=== PATIENT | male | born 1975 | race Caucasian/White ===

== ENCOUNTER 2016-09-28 17:05 | Emergency (ER) | payer OTHER ==
[2016-09-28 17:07] VITALS: BP 153/95; PULSE 78; TEMP 36.7; O2SAT 98; Ht 185.4 cm
[2016-09-28] MEDS ORDERED: PROPARACAINE HCL 0.5% OP SOLN 15 ML BTL OP STA (17:19)
[2016-09-28] MEDS ORDERED: CIPR0.3S OP (17:39)
--- NOTE | 2016-09-28 17:50 | EMERGENCY ROOM VISIT NOTE ---
History First contact with patient: 17:12 Chief Complaint: EYE ASSESSMENT Stated Complaint: RT EYE ASSESSMENT, WATERING, SWOLLEN History of Present Illness The patient is a 41 year old male who presents to the Emergency Room with complaints of a right draining eye. The patient reports that he awoke this morning with swelling and itchiness in his eye. He also had drainage from the eye. By this afternoon, he reports that the swelling and drainage had gotten significant a worse. He was seen at a walk-in clinic in [place], and referred here for further evaluation. The patient denies any significant pain, blurred vision, headache or recent upper respiratory/sinus congestion. He has not noticed any postnasal drip. 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 He does not recall getting any type of dirt, dust or other contaminants in the eye. The patient does not wear contacts. The patient denies any pain, but does complain of blurriness of his vision because of the drainage. Review of Systems 10 system review was performed and was negative except for pertinent positives and negatives as indicated in history of present illness Past Medical/Surgical History Medical Problems: (1) Diabetes (2) Hiatal hernia (3) Hypertension Surgical Problems: (1) History of tonsillectomy and adenoidectomy Family History FH: cancer FH: diabetes mellitus FH: gallbladder disease FH: heart disease FH: hypertension FH: kidney disease FH: lung disease FH: seizures Social History Smoking Status: Never Smoker Smokeless Tobacco Use: Yes Drug Use: none Marital Status: single Housing Status: lives with family, lives with significant other Occupation Status: employed Current/Historical Medications Scheduled Ciprofloxacin Hcl (Ophth) (Ciloxan Oph), 2 DROP OP Q4H Physical Exam Vital Signs Date Time Temp Pulse Resp B/P (MAP) Pulse Ox O2 Delivery O2 Flow Rate FiO2 09/28/16 17:07 36.7 78 20 153/95 98 Room Air Right Eye Acuity: 20/20 Left Eye Acuity: 20/25 Physical Exam CONSTITUTIONAL: Healthy and well nourished. Alert and oriented X 3 with positive affect. Patient does not appear in any acute distress. HEENT: Examination shows significant conjunctival injection and edema with copious mucopurulent drainage. Pupils equal, round and reactive. EOMs do not cause any discomfort. The patient also has mild inferior orbit edema without erythema or tenderness to palpation. Ears and nares are clear. NECK: Full active range of motion without discomfort. No JVD or carotid bruits. LYMPHATICS: No preauricular or cervical chain adenopathy. RESPIRATORY: Clear to auscultation bilaterally with no wheezing, crackles, rhonchi or stridor. CARDIOVASCULAR: Regular rate and rhythm with no murmurs, rubs or gallops. INTEGUMENTARY: No rash or other significant dermatologic conditions noted. NEUROLOGIC: Cranial nerves II-XII grossly intact. No focal neurologic deficits noted. Medical Decision & Procedures Procedure Slit lamp and fluorescein exam were performed. 2 drops of proparacaine were instilled into the right eye. Close exam with slit lamp again shows significant conjunctival injection and edema with copious mucopurulent. There is no evidence for cell and flare or hyphema. Fluorescein exam shows no corneal abrasions or other lesions. ED Course Patient history and physical exam were performed. Nurse's notes were reviewed. Vital signs were reviewed, showing an elevated blood pressure. The patient was instructed to follow-up with his PCP for a blood pressure recheck. Visual acuity was also reviewed and was normal. Slit lamp and fluorescein exam were performed and show no other acute findings except for a probable bacterial conjunctivitis. The patient was provided a prescription for Ciloxan 0.3% ophthalmic solution with instructions for its use. He was encouraged to intermittently apply warm moist compresses to the eye. Ibuprofen or Tylenol as needed for any discomfort. Patient was instructed to watch for any developing redness around the eye, pain with movement of the eye, headaches or fever. He was also provided contact information for Dr. Espinosa, senior environmental practice leader photoresist contact printer. The patient was happy with plan of care, voiced understanding of all discharge instructions, and denied any pain at the time of discharge. Medical Decision Medication Reconcilliation Current Medication List: was personally reviewed by me Blood Pressure Screening Patient's blood pressure: Elevated blood pressure Blood pressure disposition: Referred to PCP Impression Primary Impression: Bacterial conjunctivitis of right eye Additional Impression: Elevated blood pressure reading Departure Information Dispostion Home / Self-Care Prescriptions Ciprofloxacin Hcl (Ophth) (CILOXAN OPH) 0.3 % Viridiana 2 DROP OP Q4H for 7 Days, #1 BTL Prov: Armando Good PA 09/28/16 Referrals Collins Espinosa MD Forms HOME CARE DOCUMENTATION FORM, IMPORTANT VISIT INFORMATION Patient Instructions Conjunctivitis, [facility] Additional Instructions 2 antibiotic eyedrops every 4-6 hrs (while awake) for 7 days. You may also intermittently apply a warm compress for additional relief. Ibuprofen or Tylenol as needed for discomfort. Follow-up with an senior environmental practice leader (Dr. Espinosa) or return to the emergency department if no improvement within 48 hrs, or if you start to develop additional redness, swelling or fever. Problem Qualifiers
[2016-09-28] MEDS ORDERED: GLC/500 PO (17:51)
[2016-09-28] MEDS ORDERED: LSN/10125 PO (17:51)
[2016-09-28] MEDS ORDERED: LAMO150T32 PO (17:51)
== END 2016-09-28 17:44 | disposition home or self-care (01) ==
LOC: C.EDB 17:07 → EDBD 17:07 → C.EDD 17:44
DX: B99.9 Unspecified infectious disease (principal); H10.89 Other conjunctivitis; I10 Essential (primary) hypertension; E11.9 Type 2 diabetes mellitus without complications; Z98.890 Other specified postprocedural states; Z80.9 Family history of malignant neoplasm, unspecified; Z83.3 Family history of diabetes mellitus; Z83.79 Family history of other diseases of the digestive system; Z82.49 Family history of ischemic heart disease and other diseases of the circulatory system; Z84.1 Family history of disorders of kidney and ureter; Z82.0 Family history of epilepsy and other diseases of the nervous system